=== PATIENT | male | born 1975 | race Caucasian/White ===

== ENCOUNTER 2018-05-06 03:55 | Emergency (ER) | payer OTHER ==
[~2018-05-06] VITALS: Ht 175.3 cm; Wt 111.4 kg
[2018-05-06] MEDS ORDERED: LISI-661 PO (04:14)
[2018-05-06] MEDS ORDERED: ATOR10TA84 PO (04:14)
[2018-05-06] MEDS ORDERED: ERGO500014 PO (04:14)
[2018-05-06] MEDS ORDERED: OMEG-76 PO (04:14)
[2018-05-06] MEDS ORDERED: MAG355OR22 PO (04:14)
[2018-05-06] MEDS ORDERED: ASPI81 PO (04:14)
[2018-05-06] MEDS ORDERED: HYDR25TA PO (04:14)
[2018-05-06] MEDS ORDERED: OMEP20 PO (04:14)
[2018-05-06 04:36] LABS: APPEARANCE,URINE CLEAR (CLEAR); BILIRUBIN,URINE NEGATIVE (NEGATIVE); GLUCOSE, URINE (UA) NEGATIVE (NEGATIVE); KETONES,URINE NEGATIVE (NEGATIVE); LEUKOCYTE ESTERASE ,URINE NEGATIVE (NEGATIVE); NITRATE,URINE NEGATIVE (NEGATIVE); OCCULT BLOOD,URINE NEGATIVE (NEGATIVE); PROTEIN,URINE NEGATIVE (NEGATIVE); UROBILINOGEN,URINE 0.2 mg/dL (<=1.0)
[2018-05-06 04:38] LABS: BASOPHILS % (AUTO) 0.6 % (0.0-2.0); HEMATOCRIT 44.7 % (41-53); HEMOGLOBIN 15.6 g/dL (13.5-17.5); LYMPHOCYTES # (AUTO) 2.7 K/uL (1.0-4.8); MEAN CORPUSCULAR HGB CONC 34.9 G/dL (31.0-37.0); MEAN CORPUSCULAR VOLUME 89 fL (80-100); MONOCYTES # (AUTO) 0.8 K/uL (0.1-1.0); MONOCYTES % (AUTO) 10.7 % (2.0-9.0); NEUTROPHILS # (AUTO) 4.1 K/uL (1.8-7.7); NEUTROPHILS % (AUTO) 52.7 % (40.0-70.0); PLATELET COUNT (AUTO) 224 K/uL (150-450); RED BLOOD CELL COUNT(AUTO) 5.04 MIL/uL (4.50-5.90); RED CELL DISTRIBUTION WIDTH 12.9 % (11.5-14.5)
[2018-05-06 04:48] LABS: ANION GAP 7 mmol/L (8-16); CALCIUM, TOTAL 8.6 mg/dL (8.8-10.5); CARBON DIOXIDE 30 mmol/L (22-29); CHLORIDE 102 mmol/L (98-107); CREATININE 0.99 mg/dL (0.60-1.30); GLOMERULAR FILTR. RATE CALC > 60 mL/min (>60); GLUCOSE,RANDOM 117 mg/dL (70-110); POTASSIUM 4.1 mmol/L (3.5-5.1); SODIUM SERUM 139 mmol/L (136-145); UREA NITROGEN, BLOOD 8 mg/dL (7-18)
[2018-05-06 04:54] LABS: ALANINE AMINOTRANSFERASE 46 U/L (12-78); ALBUMIN 3.8 g/dL (3.4-5.0); ALKALINE PHOSPHATASE 66 U/L (46-116); ASPARTATE AMINOTRANSFERASE 30 U/L (15-37); BILIRUBIN,TOTAL 0.4 mg/dL (0.1-1.0); LIPASE 96 U/L (73-393); TOTAL PROTEIN, SERUM 7.5 g/dL (6.4-8.2)
[2018-05-06 06:18] VITALS: BP 132/87
== END 2018-05-06 06:20 | disposition home or self-care (01) ==
LOC: EMS 03:56
DX: R10.12 Left upper quadrant pain (principal); K21.9 Gastro-esophageal reflux disease without esophagitis; E78.00 Pure hypercholesterolemia, unspecified; I10 Essential (primary) hypertension; Z79.899 Other long term (current) drug therapy; Z79.82 Long term (current) use of aspirin; Z88.0 Allergy status to penicillin
CPT/HCPCS: 99284

== ENCOUNTER 2018-06-27 18:19 | Emergency (ER) | payer OTHER ==
[~2018-06-27] VITALS: Ht 175.3 cm; Wt 106.8 kg
[~2018-06-27 18:19] MED LIST: ASPI81 PO; ATOR10TA84 PO; ERGO500014 PO; HYDR25TA PO; LISI-661 PO; MAG355OR22 PO; OMEG-76 PO; OMEP20 PO
[2018-06-27 18:23] VITALS: BP 131/71
[2018-06-27] MEDS ORDERED: LISI1TAB9 PO (18:29)
== END 2018-06-27 19:25 | disposition left against medical advice (07) ==
LOC: EMS 18:20
DX: R51 Headache (principal); K21.9 Gastro-esophageal reflux disease without esophagitis; E78.00 Pure hypercholesterolemia, unspecified; I10 Essential (primary) hypertension; Z53.21 Procedure and treatment not carried out due to patient leaving prior to being seen by health care provider

== ENCOUNTER 2021-01-12 02:35 | Emergency (ER) | payer OTHER ==
[~2021-01-12] VITALS: Ht 175.3 cm; Wt 111.8 kg
[~2021-01-12 02:35] MED LIST changes: +ASPI-1450 PO; -ASPI81 PO; -ERGO500014 PO; -HYDR25TA PO; -LISI-661 PO; +LISI1TAB9 PO; -MAG355OR22 PO; +OMEG-189 PO; -OMEG-76 PO; -OMEP20 PO
[2021-01-12 02:52] LABS: COVID AG,FIA SOURCE NASAL SWAB
[2021-01-12] MEDS ORDERED: DEXAMETHASONE 4 MG TABLET PO ONE (03:00)
[2021-01-12 03:15] VITALS: BP 152/97
== END 2021-01-12 03:54 | disposition home or self-care (01) ==
LOC: EMS 02:41
DX: J02.8 Acute pharyngitis due to other specified organisms (principal); B97.89 Other viral agents as the cause of diseases classified elsewhere; Z20.822 Contact with and (suspected) exposure to COVID-19
CPT/HCPCS: 87426; 87430; 99283; J8540

== ENCOUNTER 2021-01-17 22:08 | Emergency (ER) | payer OTHER ==
[~2021-01-17] VITALS: Ht 175.3 cm; Wt 109.5 kg
[2021-01-17] MEDS ORDERED: FAMOTIDINE 10 MG/ML 2 ML VIAL IVP ONE (22:45)
[2021-01-17] MEDS ORDERED: MAG HYDROX/AL HYDROX/SIMETH 30 ML SUSP UDCUP PO ONE (22:45)
[2021-01-17 22:55] LABS: BASOPHILS % (AUTO) 0.2 % (0.0-2.0); EOSINOPHILS % (AUTO) 0.8 % (1.0-6.0); HEMATOCRIT 46.5 % (41-53); HEMOGLOBIN 15.9 g/dL (13.5-17.5); LYMPHOCYTES # (AUTO) 1.8 K/uL (1.0-4.8); LYMPHOCYTES % (AUTO) 15.9 % (22.0-44.0); MEAN CORPUSCULAR HEMOGLOBIN 30.4 pg (26.0-34.0); MEAN CORPUSCULAR HGB CONC 34.2 G/dL (31.0-37.0); MEAN CORPUSCULAR VOLUME 89 fL (80-100); MONOCYTES # (AUTO) 0.7 K/uL (0.1-1.0); MONOCYTES % (AUTO) 6.3 % (2.0-9.0); NEUTROPHILS # (AUTO) 8.7 K/uL (1.8-7.7); NEUTROPHILS % (AUTO) 76.8 % (40.0-70.0); PLATELET COUNT (AUTO) 298 K/uL (150-450); RED BLOOD CELL COUNT(AUTO) 5.25 MIL/uL (4.50-5.90); RED CELL DISTRIBUTION WIDTH 12.8 % (11.5-14.5)
[2021-01-17 23:08] LABS: ANION GAP 10 mmol/L (8-16); CALCIUM, TOTAL 9.2 mg/dL (8.8-10.5); CARBON DIOXIDE 26 mmol/L (22-29); CHLORIDE 100 mmol/L (98-107); CREATININE 0.96 mg/dL (0.60-1.30); GLOMERULAR FILTR. RATE CALC > 60 mL/min (>60); GLUCOSE,RANDOM 106 mg/dL (70-110); POTASSIUM 3.7 mmol/L (3.5-5.1); SODIUM SERUM 136 mmol/L (136-145); UREA NITROGEN, BLOOD 11 mg/dL (7-18)
[2021-01-17 23:16] LABS: ALANINE AMINOTRANSFERASE 59 U/L (12-78); ALBUMIN 4.4 g/dL (3.4-5.0); ALKALINE PHOSPHATASE 70 U/L (46-116); ASPARTATE AMINOTRANSFERASE 26 U/L (15-37); BILIRUBIN,TOTAL 0.3 mg/dL (0.1-1.0); CREATINE KINASE, TOTAL ONLY 57 U/L (39-308); TOTAL PROTEIN, SERUM 8.3 g/dL (6.4-8.2)
[2021-01-17 23:41] LABS: APPEARANCE,URINE CLEAR (CLEAR); BILIRUBIN,URINE NEGATIVE (NEGATIVE); GLUCOSE, URINE (UA) NEGATIVE (NEGATIVE); KETONES,URINE NEGATIVE (NEGATIVE); LEUKOCYTE ESTERASE ,URINE NEGATIVE (NEGATIVE); NITRATE,URINE NEGATIVE (NEGATIVE); OCCULT BLOOD,URINE NEGATIVE (NEGATIVE); PROTEIN,URINE NEGATIVE (NEGATIVE); UROBILINOGEN,URINE 0.2 mg/dL (<=1.0)
[2021-01-17] MEDS ORDERED: FAMOTIDINE 20 MG TABLET PO ONE (23:45)
[2021-01-17 23:49] VITALS: BP 117/56
== END 2021-01-18 00:14 | disposition home or self-care (01) ==
LOC: EMS 22:08
DX: R20.2 Paresthesia of skin (principal); E78.00 Pure hypercholesterolemia, unspecified; I10 Essential (primary) hypertension
CPT/HCPCS: 36415; 71045; 80053; 81003; 82550; 83880; 84484; 85025; 93005; 99285; J3490